=== PATIENT | male | born 1940 | race African-American/Black ===

== ENCOUNTER 2016-09-27 18:56 | Emergency (ER) | payer OTHER ==
[~2016-09-27] VITALS: Ht 175.3 cm; Wt 70.0 kg
[~2016-09-27 18:56] MED LIST: ALLO100T PO; AMLO2.5T45 PO; CARV25TA47 PO; FURO40TA5 PO; WARF5TAB73 PO
[2016-09-27 20:29] LABS: BASOPHILS % 0.9 % (0.0-2.0); EOSINOPHILS % 6.5 % (0.0-5.0); HEMATOCRIT. 31.4 % (42.0-52.0); HEMOGLOBIN. 10.2 g/dL (14.0-18.0); LYMPHOCYTES % 34.7 % (20.0-50.0); MEAN CORPUSCULAR HEMOGLOBIN 29.5 pg (28.0-32.0); MEAN CORPUSCULAR HGB CONC 32.5 g/dL (31.0-37.0); MEAN CORPUSCULAR VOLUME 90.8 fL (80.0-94.0); NEUTROPHILS % 47.9 % (40.0-76.0); PLATELET 159 x1000/uL (130-400); RED BLOOD CELL COUNT 3.46 mill/uL (4.7-6.1); RED CELL DISTRIBUTION WIDTH 16.3 % (11.6-14.6); WHITE BLOOD COUNT 4.2 x1000/uL (4.5-11.0)
[2016-09-27 20:33] LABS: CHLORIDE 108 mEq/L (98-107); INDEX HEMOLYSI 1 (1-3); INDEX ICTERIC 1 (1-4); INDEX LIPEMIC 1 (1-3)
[2016-09-27 20:34] LABS: INR 1.8; PROTHROMBIN TIME 18.7 sec
[2016-09-27 20:41] LABS: ALANINE AMINOTRANSFERASE 41 IU/L (13-61); ANION GAP 13; CALCIUM 8.9 mg/dL (8.5-10.1); CARBON DIOXIDE 24 mEq/L (21-32); eGFR 18 mL/min (>60)
[2016-09-27 20:44] LABS: UREA NITROGEN BLOOD 92 mg/dL (7-21)
[2016-09-27 21:10] LABS: TROPONIN I 0.09 ng/mL (0.00-0.04)
[2016-09-27] MEDS ORDERED: FUROSEMIDE 40MG/4ML VIAL IVP ONE (22:00)
[2016-09-28 10:02] VITALS: BP 130/79
== END 2016-09-28 10:17 | disposition short-term general hospital (02) ==
LOC: ER 18:57
DX: I50.9 Heart failure, unspecified (principal); I12.9 Hypertensive chronic kidney disease with stage 1 through stage 4 chronic kidney disease, or unspecified chronic kidney disease; N18.9 Chronic kidney disease, unspecified; E11.22 Type 2 diabetes mellitus with diabetic chronic kidney disease; Z79.01 Long term (current) use of anticoagulants; Z79.899 Other long term (current) drug therapy; Z95.1 Presence of aortocoronary bypass graft
CPT/HCPCS: 36415; 71010; 80053; 83880; 84484; 85025; 85610; 93005; 96374; 99285; J1940